=== PATIENT | male | born 1940 | race Caucasian/White ===

== ENCOUNTER 2018-06-19 10:00 | Inpatient (IN) | payer OTHER, MEDICAID, MEDICARE ==
[2018-06-19] MEDS ORDERED: POLYMYXIN/BACITRACIN 1L IRRIG (14:10)
[2018-06-19] MEDS ORDERED: BUPIVACAINE 0.25%/EPI (SDV) 30 ML INJ (14:10)
[2018-06-19] MEDS: CEFAZOLIN 2 GM/50 ML (PMX) 50 ML IVPB (14:20)
[2018-06-19] MEDS ORDERED: MIDAZOLAM 1 MG/ML 2 ML INJ (14:26)
[2018-06-19] MEDS ORDERED: DIPHENHYDRAMINE 50 MG INJ IV (14:30)
[2018-06-19] MEDS ORDERED: MEPERIDINE 25 MG INJ IV (14:30)
[2018-06-19] MEDS ORDERED: FENTAnyl 50 MCG/ML VIAL IV (14:30)
[2018-06-19] MEDS ORDERED: METOCLOPRAMIDE 10 MG INJ IV (14:30)
[2018-06-19] MEDS ORDERED: morphine (1 MG/ML) 10ML SYRINGE IV (14:30)
[2018-06-19] MEDS: BUPIVACAINE 0.25% (MPF) 30 ML INJ INJ (16:03)
[2018-06-19] MEDS ORDERED: PROPOFOL 20 ML (16:11)
[2018-06-19] MEDS ORDERED: ROCURONIUM 50 MG INJ (16:11)
[2018-06-19] MEDS ORDERED: ETOMIDATE 20 MG INJ (16:11)
[2018-06-19] MEDS ORDERED: LIDOCAINE 2% (SDV) 5 ML INJ (16:11)
[2018-06-19] MEDS ORDERED: GLYCOPYRROLATE 0.4 MG INJ (16:12)
[2018-06-19] MEDS ORDERED: ONDANSETRON 4 MG INJ (16:12)
[2018-06-19] MEDS ORDERED: CEFAZOLIN 1 GM INJ (16:12)
[2018-06-19] MEDS ORDERED: NEOSTIGMINE 3 MG/3 ML SYRINGE (16:12)
[2018-06-19] MEDS ORDERED: NALOXONE (0.4 MG/ML) INJ IV (16:30)
[2018-06-19] MEDS ORDERED: CEFAZOLIN 2 GM/50 ML (PMX) 50 ML IVPB (16:30)
[2018-06-19] MEDS: morphine (1 MG/ML) 10ML SYRINGE IV (16:35)
[2018-06-19] MEDS: LABETALOL HCL 20MG INJ IV (16:36)
[2018-06-19] MEDS: ONDANSETRON 4 MG INJ IV (17:07)
[2018-06-19] MEDS: hydrALAzine 20 MG INJ IV ×2 (17:07→17:15)
[2018-06-19 17:38] LABS: ADD MAN DIFF? NO
[2018-06-19 17:41] LABS: BASOPHIL # 0.1 10^3/ul (0.0-0.1); BASOPHILS % 0.7 % (0.0-2.0); EOSINOPHILS # 0.1 10^3/ul (0.0-0.5); EOSINOPHILS % 1.5 % (0.0-7.0); HEMATOCRIT 36.5 % (42.0-52.0); HEMOGLOBIN 11.9 g/dl (14.0-18.0); LYMPHOCYTES # 1.6 10^3/ul (0.8-2.9); MEAN CORPUSCULAR HEMOGLOBIN 29.7 pg (29.0-33.0); MEAN CORPUSCULAR HGB CONC 32.6 g/dl (32.0-37.0); MEAN PLATELET VOLUME 10.8 fl (7.4-10.4); MONOCYTE # 0.8 10^3/ul (0.3-0.9); NEUTROPHIL # 6.9 10^3/ul (1.6-7.5); NEUTROPHILS % 72.5 % (39.0-77.0); PLATELET COUNT 221 10^3/UL (140-415); RED BLOOD COUNT 4.01 10^6/ul (4.70-6.10); RED CELL DISTRIBUTION WIDTH 13.3 % (11.5-14.5)
[2018-06-19 17:41] LABS: WHITE BLOOD COUNT 9.5 10^3/ul (4.8-10.8)
[2018-06-19] MEDS: HYDROmorphONE 0.2 MG/ML PCA IV (17:43)
[2018-06-19 18:04] LABS: ALANINE AMINOTRANSFERASE 39 IU/L (13-69); ALBUMIN 3.8 g/dl (3.3-4.9); ALBUMIN/GLOBULIN RATIO 1.31; ALKALINE PHOSPHATASE 23 IU/L (42-121); ANION GAP 11 (8-16); ASPARTATE AMINO TRANSFERASE 36 IU/L (15-46); BILIRUBIN,INDIRECT 0.3 mg/dl (0-1.1); BILIRUBIN,TOTAL 0.3 mg/dl (0.2-1.3); BLOOD UREA NITROGEN 14 mg/dl (7-20); CALCIUM 8.9 mg/dl (8.4-10.2); CARBON DIOXIDE 25 mmol/L (21-31); CHLORIDE 107 mmol/L (97-110); CREATININE 1.05 mg/dl (0.61-1.24); GLUCOSE 154 mg/dl (70-220); POTASSIUM 3.4 mmol/L (3.5-5.1); SODIUM 140 mmol/L (135-144); TOTAL PROTEIN 6.7 g/dl (6.1-8.1)
[2018-06-19] MEDS: SOD CHLORIDE 0.9% 1,000 ML IV ×2 (20:00→21:22)
[2018-06-19] MEDS: INSULIN ASPART [NOVOLOG] 3 ML PEN SC (21:00)
[2018-06-19] MEDS: ATORVASTATIN 40 MG TAB PO (21:00)
[2018-06-19] MEDS: INSULIN GLARGINE [LANTus] (100 UNITS/ML) SYG SC (21:30)
[2018-06-20] MEDS: CEFAZOLIN 2 GM/50 ML (PMX) 50 ML IVPB ×3 (00:03→13:32)
[2018-06-20] MEDS: ACCU-CHEK XX (02:00)
[2018-06-20] MEDS: SOD CHLORIDE 0.9% 1,000 ML IV ×3 (02:06→18:45)
[2018-06-20 06:56] LABS: ADD MAN DIFF? NO
[2018-06-20 07:05] LABS: ABNORMAL IP MESSAGE 1; BASOPHILS % 0.3 % (0.0-2.0); EOSINOPHILS % 0.1 % (0.0-7.0); HEMATOCRIT 39.3 % (42.0-52.0); HEMOGLOBIN 12.5 g/dl (14.0-18.0); LYMPHOCYTES # 0.5 10^3/ul (0.8-2.9); LYMPHOCYTES % 4.2 % (15.0-51.0); MEAN CORPUSCULAR HEMOGLOBIN 29.9 pg (29.0-33.0); MEAN CORPUSCULAR HGB CONC 31.8 g/dl (32.0-37.0); MEAN PLATELET VOLUME 10.9 fl (7.4-10.4); MONOCYTE # 1.2 10^3/ul (0.3-0.9); MONOCYTES % 10.1 % (0.0-11.0); NEUTROPHIL # 9.8 10^3/ul (1.6-7.5); PLATELET COUNT 224 10^3/UL (140-415); POSITIVE DIFF @See below; RED BLOOD COUNT 4.18 10^6/ul (4.70-6.10); RED CELL DISTRIBUTION WIDTH 13.6 % (11.5-14.5)
[2018-06-20 07:05] LABS: WHITE BLOOD COUNT 11.5 10^3/ul (4.8-10.8)
[2018-06-20 07:25] LABS: ALANINE AMINOTRANSFERASE 32 IU/L (13-69); ALBUMIN/GLOBULIN RATIO 1.33; ALKALINE PHOSPHATASE 24 IU/L (42-121); ANION GAP 12 (8-16); ASPARTATE AMINO TRANSFERASE 31 IU/L (15-46); BILIRUBIN,INDIRECT 0.4 mg/dl (0-1.1); BILIRUBIN,TOTAL 0.4 mg/dl (0.2-1.3); BLOOD UREA NITROGEN 12 mg/dl (7-20); CALCIUM 8.8 mg/dl (8.4-10.2); CARBON DIOXIDE 28 mmol/L (21-31); CHLORIDE 103 mmol/L (97-110); CREATININE 0.99 mg/dl (0.61-1.24); GLUCOSE 174 mg/dl (70-220); POTASSIUM 4.1 mmol/L (3.5-5.1); SODIUM 139 mmol/L (135-144)
[2018-06-20] MEDS: INSULIN ASPART [NOVOLOG] 3 ML PEN SC ×4 (08:12→21:00)
[2018-06-20] MEDS: AMLODIPINE 10 MG TAB PO (08:17)
[2018-06-20] MEDS: BENAZEPRIL 20 MG TAB PO (08:17)
[2018-06-20] MEDS: PANTOPRAZOLE (EC) 40 MG TAB PO (11:25)
[2018-06-20] MEDS ORDERED: ONDANSETRON 4 MG INJ IV (15:30)
[2018-06-20] MEDS: ATORVASTATIN 40 MG TAB PO (21:15)
[2018-06-20] MEDS: INSULIN GLARGINE [LANTus] (100 UNITS/ML) SYG SC (21:18)
[2018-06-20] MEDS: ACETAMINOPHEN 325 MG TAB PO (22:58)
[2018-06-20] MEDS ORDERED: morphine 2 MG INJ IV (23:00)
[2018-06-21] MEDS: ACCU-CHEK XX (02:00)
[2018-06-21] MEDS: SOD CHLORIDE 0.9% 1,000 ML IV ×2 (05:13→17:15)
[2018-06-21] MEDS: PANTOPRAZOLE (EC) 40 MG TAB PO (05:13)
[2018-06-21] MEDS: ACETAMINOPHEN 325 MG TAB PO (06:01)
[2018-06-21] MEDS: AMLODIPINE 10 MG TAB PO (08:13)
[2018-06-21] MEDS: BENAZEPRIL 20 MG TAB PO (08:14)
[2018-06-21] MEDS: HYDROCODONE/APAP (5/325) TAB PO ×2 (08:15→13:38)
[2018-06-21] MEDS: INSULIN ASPART [NOVOLOG] 3 ML PEN SC ×4 (08:24→20:22)
[2018-06-21] MEDS ORDERED: OXYMETAZOLINE 0.05% 15 ML NAS SPRAY NASAL (09:00)
[2018-06-21 09:42] LABS: ADD MAN DIFF? NO
[2018-06-21 09:47] LABS: WHITE BLOOD COUNT 10.5 10^3/ul (4.8-10.8)
[2018-06-21 09:47] LABS: ABNORMAL IP MESSAGE 1; BASOPHILS % 0.2 % (0.0-2.0); EOSINOPHILS # 0.1 10^3/ul (0.0-0.5); HEMATOCRIT 38.8 % (42.0-52.0); HEMOGLOBIN 12.5 g/dl (14.0-18.0); LYMPHOCYTES # 0.5 10^3/ul (0.8-2.9); LYMPHOCYTES % 5.1 % (15.0-51.0); MEAN CORPUSCULAR HEMOGLOBIN 29.5 pg (29.0-33.0); MEAN CORPUSCULAR HGB CONC 32.2 g/dl (32.0-37.0); MEAN CORPUSCULAR VOLUME 91.5 fl (82.0-101.0); MEAN PLATELET VOLUME 11.1 fl (7.4-10.4); MONOCYTE # 1.2 10^3/ul (0.3-0.9); MONOCYTES % 11.3 % (0.0-11.0); NEUTROPHIL # 8.6 10^3/ul (1.6-7.5); NEUTROPHILS % 81.9 % (39.0-77.0); PLATELET COUNT 211 10^3/UL (140-415); POSITIVE DIFF @See below; RED BLOOD COUNT 4.24 10^6/ul (4.70-6.10); RED CELL DISTRIBUTION WIDTH 13.3 % (11.5-14.5)
[2018-06-21 10:14] LABS: ANION GAP 15 (8-16); BLOOD UREA NITROGEN 10 mg/dl (7-20); CALCIUM 8.9 mg/dl (8.4-10.2); CARBON DIOXIDE 23 mmol/L (21-31); CHLORIDE 106 mmol/L (97-110); CREATININE 0.91 mg/dl (0.61-1.24); GLUCOSE 154 mg/dl (70-220); POTASSIUM 3.9 mmol/L (3.5-5.1); SODIUM 140 mmol/L (135-144)
[2018-06-21] MEDS: ALPRAZOLAM 1 MG TAB PO (20:20)
[2018-06-21] MEDS: ATORVASTATIN 40 MG TAB PO (20:20)
[2018-06-21] MEDS: INSULIN GLARGINE [LANTus] (100 UNITS/ML) SYG SC (20:32)
[2018-06-22] MEDS: HYDROCODONE/APAP (5/325) TAB PO ×3 (00:21→20:06)
[2018-06-22] MEDS: LABETALOL HCL 20MG INJ IV (00:23)
[2018-06-22] MEDS: ACCU-CHEK XX (01:19)
[2018-06-22] MEDS: PANTOPRAZOLE (EC) 40 MG TAB PO (05:23)
[2018-06-22] MEDS: SOD CHLORIDE 0.9% 1,000 ML IV (05:25)
[2018-06-22] MEDS: INSULIN ASPART [NOVOLOG] 3 ML PEN SC ×4 (07:55→20:07)
[2018-06-22] MEDS ORDERED: POLYETHYLENE GLYCOL 17 GM PACKET PO (08:30)
[2018-06-22 09:00] LABS: ADD MAN DIFF? NO
[2018-06-22 09:02] LABS: BASOPHILS % 0.5 % (0.0-2.0); EOSINOPHILS # 0.4 10^3/ul (0.0-0.5); HEMATOCRIT 36.1 % (42.0-52.0); HEMOGLOBIN 11.6 g/dl (14.0-18.0); LYMPHOCYTES % 11.5 % (15.0-51.0); MEAN CORPUSCULAR HEMOGLOBIN 29.5 pg (29.0-33.0); MEAN CORPUSCULAR HGB CONC 32.1 g/dl (32.0-37.0); MEAN CORPUSCULAR VOLUME 91.9 fl (82.0-101.0); MEAN PLATELET VOLUME 11.1 fl (7.4-10.4); MONOCYTE # 1.2 10^3/ul (0.3-0.9); MONOCYTES % 13.3 % (0.0-11.0); NEUTROPHIL # 6.2 10^3/ul (1.6-7.5); NEUTROPHILS % 70.4 % (39.0-77.0); PLATELET COUNT 260 10^3/UL (140-415); RED BLOOD COUNT 3.93 10^6/ul (4.70-6.10); RED CELL DISTRIBUTION WIDTH 13.3 % (11.5-14.5)
[2018-06-22 09:02] LABS: WHITE BLOOD COUNT 8.8 10^3/ul (4.8-10.8)
[2018-06-22 09:33] LABS: ANION GAP 11 (8-16); BLOOD UREA NITROGEN 16 mg/dl (7-20); CALCIUM 8.9 mg/dl (8.4-10.2); CARBON DIOXIDE 26 mmol/L (21-31); CHLORIDE 105 mmol/L (97-110); CREATININE 0.96 mg/dl (0.61-1.24); GLUCOSE 150 mg/dl (70-220); POTASSIUM 4.3 mmol/L (3.5-5.1); SODIUM 138 mmol/L (135-144)
[2018-06-22] MEDS: DOCUSATE SODIUM 100 MG CAP PO ×2 (09:47→20:06)
[2018-06-22] MEDS: AMLODIPINE 10 MG TAB PO (09:47)
[2018-06-22] MEDS: SENNA TAB PO ×2 (09:47→20:06)
[2018-06-22] MEDS: BENAZEPRIL 20 MG TAB PO ×2 (09:48→20:07)
[2018-06-22] MEDS: ALPRAZOLAM 1 MG TAB PO (20:06)
[2018-06-22] MEDS: ATORVASTATIN 40 MG TAB PO (20:06)
[2018-06-22] MEDS: INSULIN GLARGINE [LANTus] (100 UNITS/ML) SYG SC (20:16)
[2018-06-23] MEDS: ACCU-CHEK XX (01:33)
[2018-06-23] MEDS: ACETAMINOPHEN 325 MG TAB PO (02:26)
[2018-06-23] MEDS: morphine LIQ (10 MG/5 ML) CUP PO (03:17)
[2018-06-23] MEDS: PANTOPRAZOLE (EC) 40 MG TAB PO (05:59)
[2018-06-23] MEDS: INSULIN ASPART [NOVOLOG] 3 ML PEN SC ×2 (07:55→11:50)
[2018-06-23] MEDS: SENNA TAB PO (09:01)
[2018-06-23] MEDS: BENAZEPRIL 20 MG TAB PO (09:04)
[2018-06-23] MEDS: DOCUSATE SODIUM 100 MG CAP PO (09:04)
[2018-06-23] MEDS: AMLODIPINE 10 MG TAB PO (09:04)
== END 2018-06-23 12:45 | disposition home or self-care (01) | DRG 353 ==
LOC: REC 10:00 → TEL 18:53
PROVIDERS: Surgery
PROC: 0WUF0JZ Supplement Abdominal Wall with Synthetic Substitute, Open Approach (ICD-10-PCS; principal; 2018-06-19 14:00)
PROC: 0WQF0ZZ Repair Abdominal Wall, Open Approach (ICD-10-PCS; 2018-06-19 14:00)
PROC: 0KXL0ZZ Transfer Left Abdomen Muscle, Open Approach (ICD-10-PCS; 2018-06-19 14:00)
PROC: 0KXK0ZZ Transfer Right Abdomen Muscle, Open Approach (ICD-10-PCS; 2018-06-19 14:00)
DX: K43.0 Incisional hernia with obstruction, without gangrene (principal); J96.01 Acute respiratory failure with hypoxia; K42.9 Umbilical hernia without obstruction or gangrene; E78.5 Hyperlipidemia, unspecified; I12.9 Hypertensive chronic kidney disease with stage 1 through stage 4 chronic kidney disease, or unspecified chronic kidney disease; E11.22 Type 2 diabetes mellitus with diabetic chronic kidney disease; N18.9 Chronic kidney disease, unspecified; K21.9 Gastro-esophageal reflux disease without esophagitis; F41.9 Anxiety disorder, unspecified; Z79.4 Long term (current) use of insulin; Z79.84 Long term (current) use of oral hypoglycemic drugs; Z85.038 Personal history of other malignant neoplasm of large intestine
CPT/HCPCS: 71045; 80048; 80053; 82962; 85025; 88302; 88307